=== PATIENT | female | born 1950 | race Caucasian/White ===

== ENCOUNTER → 2020-12-08 | Day surgery (SDC) | payer MEDICARE ==
[~2020-12-08] MED LIST: ASCORBIC ACID500 MG PO; EFFEXOR-XR 75 M75 MG PO; MAG-OXIDE 400M400 MG PO; MELATONIN5 M2 PO; VITAMIN D310 MC4 PO; WELLBUTRIN XL300 MG PO; ZINC50 M2 PO
[2020-12-08 09:58] LABS: HCT 44.7 % (37.0-47.0); HGB 14.9 g/dl (12.5-16.0); MCH 30.1 pg (25.0-31.0); MCHC 33.3 g/dL (32.0-36.0); MCV 90.3 fL (78.0-100.0); RBC 4.95 M/uL (4.20-5.40); RDW 13.1 % (11.5-14.0); WBC 7.5 K/uL (4.0-10.5)
[2020-12-08 10:14] LABS: BILIRUBIN - TOTAL 0.7 mg/dL (0.2-1.0); CREATININE 0.75 mg/dL (0.51-0.95); GLOBULIN (CALCULATION) 3.5 g/dL; POTASSIUM 3.9 mmol/L (3.5-5.1); TOTAL PROTEIN 7.5 g/dL (6.4-8.2)
== END | disposition home or self-care (01) ==
LOC: FAS 12-07 08:30
PROVIDERS: Surgery
DX: K58.9 Irritable bowel syndrome, unspecified (principal); K63.89 Other specified diseases of intestine; M85.80 Other specified disorders of bone density and structure, unspecified site; F32.9 Major depressive disorder, single episode, unspecified; Z88.2 Allergy status to sulfonamides; Z98.890 Other specified postprocedural states; Z90.710 Acquired absence of both cervix and uterus; Z82.49 Family history of ischemic heart disease and other diseases of the circulatory system; Z20.822 Contact with and (suspected) exposure to COVID-19
CPT/HCPCS: 36415; 80053; 88305; J1610; J2704; J7120